=== PATIENT | male | born 1945 | race Caucasian/White ===

== ENCOUNTER 2017-11-15 14:18 | Inpatient (IN) | payer MEDICARE ==
[~2017-11-15] VITALS: Ht 175.3 cm; Wt 93.2 kg
[~2017-11-15 14:18] MED LIST: AMLO-511 PO; ATOR20TA86 PO; LORA0.5T2 PO; METHI5 PO; METO25 PO; SITA1TAB6 PO
[2017-11-15] MEDS ORDERED: FINA5TAB41 PO (14:38)
[2017-11-15] MEDS ORDERED: ESCI10TA PO (14:38)
[2017-11-15] MEDS ORDERED: LOSA25TA21 PO (14:38)
[2017-11-15] MEDS ORDERED: FURO40 PO (14:38)
[2017-11-15] MEDS ORDERED: METF500T4 PO (14:38)
[2017-11-15] MEDS ORDERED: GABA-529 PO (14:38)
[2017-11-15] MEDS ORDERED: SITA100 PO (14:38)
[2017-11-15] MEDS ORDERED: ASPI-556 PO (14:38)
[2017-11-15] MEDS ORDERED: TAMS0.4C32 PO (14:38)
[2017-11-15] MEDS ORDERED: APIX5TAB PO (14:38)
[2017-11-15 14:47] LABS: GLUCOSE,POINT OF CARE 223 MG/DL (70-110)
[2017-11-15 15:41] LABS: ANION GAP 11 mmol/L (8-16); BASOPHILS % (AUTO) 0.1 % (0.0-2.0); CALCIUM, TOTAL 9.3 mg/dL (8.8-10.5); CARBON DIOXIDE 28 mmol/L (22-29); CHLORIDE 104 mmol/L (98-107); CREATININE 0.93 mg/dL (0.60-1.30); EOSINOPHILS % (AUTO) 7.9 % (1.0-6.0); GLOMERULAR FILTR. RATE CALC > 60 mL/min (>60); GLUCOSE,RANDOM 223 mg/dL (70-110); HEMATOCRIT 33.3 % (41-53); HEMOGLOBIN 11.2 g/dL (13.5-17.5); LYMPHOCYTES # (AUTO) 2.3 K/uL (1.0-4.8); MEAN CORPUSCULAR HEMOGLOBIN 30.5 pg (26.0-34.0); MEAN CORPUSCULAR HGB CONC 33.7 G/dL (31.0-37.0); MEAN CORPUSCULAR VOLUME 91 fL (80-100); MONOCYTES # (AUTO) 0.6 K/uL (0.1-1.0); MONOCYTES % (AUTO) 6.6 % (2.0-9.0); NEUTROPHILS # (AUTO) 5.2 K/uL (1.8-7.7); NEUTROPHILS % (AUTO) 59.4 % (40.0-70.0); PLATELET COUNT (AUTO) 221 K/uL (150-450); POTASSIUM 3.4 mmol/L (3.5-5.1); RED BLOOD CELL COUNT(AUTO) 3.68 MIL/uL (4.50-5.90); RED CELL DISTRIBUTION WIDTH 16.2 % (11.5-14.5); SODIUM SERUM 143 mmol/L (136-145); UREA NITROGEN, BLOOD 21 mg/dL (7-18)
[2017-11-15 15:47] LABS: INR 1.1 (0.9-1.1); PROTHROMBIN TIME 12.1 SEC (9.4-11.6)
[2017-11-15 16:05] LABS: B-TYPE NATRIURETIC PEPTIDE 571 pg/mL (0-100)
[2017-11-15 16:06] LABS: ALANINE AMINOTRANSFERASE 25 U/L (12-78); ALBUMIN 3.5 g/dL (3.4-5.0); ALKALINE PHOSPHATASE 103 U/L (46-116); ASPARTATE AMINOTRANSFERASE 19 U/L (15-37); BILIRUBIN,TOTAL 0.5 mg/dL (0.1-1.0); CREATINE KINASE MB 1.6 ng/mL (0-5); CREATINE KINASE, TOTAL 91 U/L (39-308); TOTAL PROTEIN, SERUM 7.8 g/dL (6.4-8.2)
[2017-11-15 16:53] LABS: GLUCOSE,POINT OF CARE 208 MG/DL (70-110)
[2017-11-15 19:53] LABS: GLUCOSE,POINT OF CARE 182 MG/DL (70-110)
[2017-11-15] MEDS ORDERED: VANCOMYCIN HCL 1 GM/D5% WATER 200 ML IV ONE (22:45)
[2017-11-15 23:04] LABS: APPEARANCE,URINE CLEAR (CLEAR); BILIRUBIN,URINE NEGATIVE (NEGATIVE); GLUCOSE, URINE (UA) NEGATIVE (NEGATIVE); KETONES,URINE NEGATIVE (NEGATIVE); LEUKOCYTE ESTERASE ,URINE NEGATIVE (NEGATIVE); NITRATE,URINE NEGATIVE (NEGATIVE); OCCULT BLOOD,URINE NEGATIVE (NEGATIVE); PROTEIN,URINE TRACE (NEGATIVE)
[2017-11-15] MEDS ORDERED: 0.9% SODIUM CHLORIDE 10 ML SYRINGE IVP PRN (23:15)
[2017-11-15] MEDS ORDERED: ONDANSETRON HCL 4 MG/2 ML VIAL IVP PRN (23:15)
[2017-11-15] MEDS ORDERED: CefTRIAXone 1 GM/DEXTROSE 50 ML IV ONE (23:15)
[2017-11-15] MEDS ORDERED: ACETAMINOPHEN 325 MG TABLET PO PRN (23:15)
[2017-11-16] MEDS ORDERED: DEXTROSE 50%-WATER 25 GM/50 ML SYRINGE IVP PRN ×2 (00:15→00:30)
[2017-11-16] MEDS ORDERED: INSULIN ASPART 100 UNITS/ML SQ PRN (00:15)
[2017-11-16 00:28] VITALS: BP 128/62
[2017-11-16] MEDS ORDERED: MAGNESIUM HYDROXIDE SUSPENSION 30 ML UDCUP PO PRN (00:30)
[2017-11-16] MEDS ORDERED: MORPHINE SULFATE 2 MG/ML SYRINGE IVP PRN (00:30)
[2017-11-16] MEDS ORDERED: 0.9% SODIUM CHLORIDE 10 ML SYRINGE IVP PRN (00:30)
[2017-11-16] MEDS ORDERED: ONDANSETRON HCL 4 MG/2 ML VIAL IVP PRN (00:30)
[2017-11-16] MEDS ORDERED: ACETAMINOPHEN 325 MG TABLET PO PRN (00:30)
[2017-11-16 05:25] VITALS: BP 140/90
[2017-11-16 06:02] LABS: BASOPHILS % (AUTO) 0.3 % (0.0-2.0); EOSINOPHILS % (AUTO) 9.5 % (1.0-6.0); HEMATOCRIT 32.2 % (41-53); HEMOGLOBIN 10.9 g/dL (13.5-17.5); LYMPHOCYTES # (AUTO) 2.4 K/uL (1.0-4.8); LYMPHOCYTES % (AUTO) 31.5 % (22.0-44.0); MEAN CORPUSCULAR HEMOGLOBIN 30.9 pg (26.0-34.0); MEAN CORPUSCULAR HGB CONC 33.9 G/dL (31.0-37.0); MEAN CORPUSCULAR VOLUME 91 fL (80-100); MONOCYTES # (AUTO) 0.4 K/uL (0.1-1.0); MONOCYTES % (AUTO) 5.7 % (2.0-9.0); NEUTROPHILS # (AUTO) 4.1 K/uL (1.8-7.7); PLATELET COUNT (AUTO) 199 K/uL (150-450); RED BLOOD CELL COUNT(AUTO) 3.54 MIL/uL (4.50-5.90); RED CELL DISTRIBUTION WIDTH 16.3 % (11.5-14.5)
[2017-11-16 06:50] LABS: ANION GAP 8 mmol/L (8-16); BILIRUBIN,TOTAL 0.5 mg/dL (0.1-1.0); CHLORIDE 107 mmol/L (98-107); SODIUM SERUM 143 mmol/L (136-145)
[2017-11-16 06:54] LABS: ALANINE AMINOTRANSFERASE 25 U/L (12-78); ALBUMIN 3.4 g/dL (3.4-5.0); ALKALINE PHOSPHATASE 105 U/L (46-116); ASPARTATE AMINOTRANSFERASE 20 U/L (15-37); C-REACTIVE PROTEIN QUANT 1.36 mg/dL (0.00-0.30); CARBON DIOXIDE 28 mmol/L (22-29); CHOLESTEROL 106 mg/dL (131-200); GLOMERULAR FILTR. RATE CALC > 60 mL/min (>60); GLUCOSE,RANDOM 192 mg/dL (70-110); HDL CHOLESTEROL 35 mg/dL (40-60); LDL CHOL (CALC.) 52 mg/dL (0-130); PHOSPHORUS 3.5 mg/dL (2.5-4.9); POTASSIUM 3.2 mmol/L (3.5-5.1); TOTAL PROTEIN, SERUM 7.3 g/dL (6.4-8.2); TRIGLYCERIDES 93 mg/dL (15-150); UREA NITROGEN, BLOOD 20 mg/dL (7-18)
[2017-11-16] MEDS ORDERED: SUCCINYLCHOLINE CHLORIDE 20 MG/ML 10 ML VIAL ONE (07:12)
[2017-11-16] MEDS ORDERED: RAPID SEQUENCE KIT [RSI] 1 EACH KIT ONE (07:12)
[2017-11-16 07:32] LABS: GLUCOSE,POINT OF CARE 179 MG/DL (70-110)
[2017-11-16 07:41] LABS: HEMOGLOBIN A1C 8.7 % (4.5-6.2)
[2017-11-16] MEDS: INSULIN ASPART 100 UNITS/ML SQ PRN ×5 (07:55→22:30)
[2017-11-16] MEDS: VANCOMYCIN HCL 1.5 GM in DEXTROSE 5%-WATER 250 ML IV SCH ×2 (08:36→20:51)
[2017-11-16] MEDS ORDERED: CefTRIAXone 1 GM/DEXTROSE 50 ML IV SCH (09:00)
[2017-11-16 09:04] VITALS: BP 159/98
[2017-11-16] MEDS: FUROSEMIDE 40 MG TABLET PO SCH (09:25)
[2017-11-16] MEDS: GABAPENTIN 100 MG CAPSULE PO SCH (09:25)
[2017-11-16] MEDS: LOSARTAN POTASSIUM 25 MG TABLET PO SCH (09:25)
[2017-11-16] MEDS: TAMSULOSIN HCL 0.4 MG CAPSULE PO SCH (09:25)
[2017-11-16] MEDS: ESCITALOPRAM OXALATE 10 MG TABLET PO SCH (09:25)
[2017-11-16] MEDS: FINASTERIDE 5 MG TABLET PO SCH (09:26)
[2017-11-16] MEDS: PANTOPRAZOLE SODIUM 40 MG DR TABLET PO SCH (09:26)
[2017-11-16] MEDS: APIXABAN 5 MG TABLET PO SCH ×2 (09:26→21:17)
[2017-11-16] MEDS: METOPROLOL TARTRATE 50 MG TABLET PO SCH (09:26)
[2017-11-16] MEDS: ATORVASTATIN CALCIUM 40 MG TABLET PO SCH (09:26)
[2017-11-16 09:30] LABS: ERYTHROCYTE SEDIMENTATION RATE 22 MM/HR (0-15)
[2017-11-16] MEDS: ASPIRIN 81 MG EC TABLET PO SCH (09:31)
[2017-11-16 12:28] LABS: GLUCOSE,POINT OF CARE 248 MG/DL (70-110)
[2017-11-16 13:39] VITALS: BP 133/71
[2017-11-16 17:12] VITALS: BP 142/83
[2017-11-16 18:02] LABS: GLUCOSE,POINT OF CARE 223 MG/DL (70-110)
[2017-11-16 20:30] VITALS: BP 141/82
[2017-11-16 21:28] LABS: GLUCOSE,POINT OF CARE 178 MG/DL (70-110)
[2017-11-17] VITALS (10 sets, daily range): BP systolic 134–183; BP diastolic 80–106
[2017-11-17] MEDS: CefTRIAXone 1 GM/DEXTROSE 50 ML IV SCH ×2 (00:25→22:54)
[2017-11-17 06:06] LABS: CALCIUM, TOTAL 8.9 mg/dL (8.8-10.5); CARBON DIOXIDE 30 mmol/L (22-29); CREATININE 0.78 mg/dL (0.60-1.30); GLOMERULAR FILTR. RATE CALC > 60 mL/min (>60); GLUCOSE,RANDOM 199 mg/dL (70-110); UREA NITROGEN, BLOOD 15 mg/dL (7-18); VANCOMYCIN,RANDOM 21.9 mcg/mL (25.0-50.0)
[2017-11-17 06:25] LABS: ANION GAP 6 mmol/L (8-16); CHLORIDE 104 mmol/L (98-107); POTASSIUM 3.2 mmol/L (3.5-5.1); SODIUM SERUM 140 mmol/L (136-145)
[2017-11-17 08:17] LABS: GLUCOSE,POINT OF CARE 230 MG/DL (70-110)
[2017-11-17] MEDS: VANCOMYCIN HCL 1 GM/D5% WATER 200 ML IV SCH ×2 (08:51→16:27)
[2017-11-17] MEDS: ASPIRIN 81 MG EC TABLET PO SCH (09:00)
[2017-11-17] MEDS ORDERED: POTASSIUM CHL 10 MEQ/WATER 50 ML IV PRN (11:00)
[2017-11-17] MEDS ORDERED: MAGNESIUM SULFATE 2 GM in DEXTROSE 5%-WATER 50 ML IV PRN (11:00)
[2017-11-17] MEDS: MAGNESIUM OXIDE 400 MG TABLET PO PRN (11:27)
[2017-11-17] MEDS: POTASSIUM CHLORIDE 20 MEQ ER TABLET PO PRN (12:30)
[2017-11-17] MEDS ORDERED: REGADENOSON 0.4 MG/5 ML PF SYRINGE IVP ONE ×2 (13:50→15:43)
[2017-11-17] MEDS ORDERED: SESTAMIBI TC99M/UD ISOTOPE 1 EA INJ INJ ONE ×2 (14:00→16:15)
[2017-11-17 14:53] LABS: GLUCOSE,POINT OF CARE 198 MG/DL (70-110)
[2017-11-17] MEDS: INSULIN ASPART 100 UNITS/ML SQ PRN ×3 (15:01→21:53)
[2017-11-17] MEDS: GABAPENTIN 100 MG CAPSULE PO SCH (15:06)
[2017-11-17] MEDS: BISACODYL 10 MG RECTAL RECTAL SUPPOSITORY PR PRN (15:07)
[2017-11-17] MEDS: PANTOPRAZOLE SODIUM 40 MG DR TABLET PO SCH (15:07)
[2017-11-17] MEDS: APIXABAN 5 MG TABLET PO SCH ×2 (15:18→21:23)
[2017-11-17] MEDS: ATORVASTATIN CALCIUM 40 MG TABLET PO SCH (15:18)
[2017-11-17] MEDS: LOSARTAN POTASSIUM 25 MG TABLET PO SCH (15:18)
[2017-11-17] MEDS: FUROSEMIDE 40 MG TABLET PO SCH (15:18)
[2017-11-17] MEDS: ESCITALOPRAM OXALATE 10 MG TABLET PO SCH (15:19)
[2017-11-17] MEDS: METOPROLOL TARTRATE 50 MG TABLET PO SCH (15:19)
[2017-11-17] MEDS: TAMSULOSIN HCL 0.4 MG CAPSULE PO SCH (15:19)
[2017-11-17] MEDS: FINASTERIDE 5 MG TABLET PO SCH (15:19)
[2017-11-17] MEDS ORDERED: METO50 PO (17:43)
[2017-11-17] MEDS ORDERED: ATOR40TA28 PO (17:43)
[2017-11-17] MEDS ORDERED: PERMETHRIN 5% 60 GM CREAM TP ONE (17:45)
[2017-11-17 19:12] LABS: GLUCOSE,POINT OF CARE 226 MG/DL (70-110)
[2017-11-17] MEDS ORDERED: SODIUM CHLORIDE 0.9% 100 ML ONE (23:57)
[2017-11-18] MEDS: VANCOMYCIN HCL 1 GM/D5% WATER 200 ML IV SCH ×3 (02:54→15:47)
[2017-11-18 05:47] VITALS: BP 137/84
[2017-11-18] MEDS: INSULIN ASPART 100 UNITS/ML SQ PRN ×4 (06:02→21:01)
[2017-11-18 06:28] LABS: GLUCOSE,POINT OF CARE 217 MG/DL (70-110)
[2017-11-18 07:13] LABS: BASOPHILS % (AUTO) 0.3 % (0.0-2.0); EOSINOPHILS % (AUTO) 9.9 % (1.0-6.0); HEMATOCRIT 32.9 % (41-53); HEMOGLOBIN 11.2 g/dL (13.5-17.5); LYMPHOCYTES # (AUTO) 2.3 K/uL (1.0-4.8); LYMPHOCYTES % (AUTO) 29.1 % (22.0-44.0); MEAN CORPUSCULAR HEMOGLOBIN 30.7 pg (26.0-34.0); MEAN CORPUSCULAR VOLUME 90 fL (80-100); MONOCYTES # (AUTO) 0.5 K/uL (0.1-1.0); MONOCYTES % (AUTO) 6.9 % (2.0-9.0); NEUTROPHILS # (AUTO) 4.3 K/uL (1.8-7.7); NEUTROPHILS % (AUTO) 53.8 % (40.0-70.0); PLATELET COUNT (AUTO) 200 K/uL (150-450); RED BLOOD CELL COUNT(AUTO) 3.64 MIL/uL (4.50-5.90); RED CELL DISTRIBUTION WIDTH 16.1 % (11.5-14.5)
[2017-11-18 07:25] LABS: C-REACTIVE PROTEIN QUANT 1.33 mg/dL (0.00-0.30); CALCIUM, TOTAL 8.7 mg/dL (8.8-10.5); CARBON DIOXIDE 28 mmol/L (22-29); CREATININE 0.97 mg/dL (0.60-1.30); GLOMERULAR FILTR. RATE CALC > 60 mL/min (>60); GLUCOSE,RANDOM 279 mg/dL (70-110); UREA NITROGEN, BLOOD 12 mg/dL (7-18)
[2017-11-18 08:04] VITALS: BP 134/81
[2017-11-18] MEDS: ASPIRIN 81 MG EC TABLET PO SCH (08:24)
[2017-11-18] MEDS: TAMSULOSIN HCL 0.4 MG CAPSULE PO SCH (08:24)
[2017-11-18] MEDS: LOSARTAN POTASSIUM 25 MG TABLET PO SCH (08:24)
[2017-11-18] MEDS: FUROSEMIDE 40 MG TABLET PO SCH (08:24)
[2017-11-18] MEDS: APIXABAN 5 MG TABLET PO SCH ×2 (08:24→20:54)
[2017-11-18] MEDS: ATORVASTATIN CALCIUM 40 MG TABLET PO SCH (08:25)
[2017-11-18] MEDS: FINASTERIDE 5 MG TABLET PO SCH (08:25)
[2017-11-18] MEDS: PANTOPRAZOLE SODIUM 40 MG DR TABLET PO SCH (08:25)
[2017-11-18] MEDS: ESCITALOPRAM OXALATE 10 MG TABLET PO SCH (08:25)
[2017-11-18] MEDS: METOPROLOL TARTRATE 50 MG TABLET PO SCH (08:25)
[2017-11-18] MEDS: GABAPENTIN 100 MG CAPSULE PO SCH (08:25)
[2017-11-18 08:38] LABS: ANION GAP 8 mmol/L (8-16); CHLORIDE 105 mmol/L (98-107); POTASSIUM 3.5 mmol/L (3.5-5.1); SODIUM SERUM 141 mmol/L (136-145)
[2017-11-18 08:45] LABS: ERYTHROCYTE SEDIMENTATION RATE 35 MM/HR (0-15)
[2017-11-18 11:41] VITALS: BP 131/73
[2017-11-18 15:34] LABS: GLUCOMETER DEV NAME(LOC) 5S 1L; GLUCOSE,POINT OF CARE 257 MG/DL (70-110)
[2017-11-18 15:34] LABS: GLUCOMETER DEV NAME(LOC) 5S 1L; GLUCOSE,POINT OF CARE 285 MG/DL (70-110)
[2017-11-18 15:39] VITALS: BP 117/70
[2017-11-18 19:18] VITALS: BP 115/67
[2017-11-18] MEDS ORDERED: DiphenhydrAMINE HCL 25 MG CAPSULE PO PRN (20:45)
[2017-11-18] MEDS: CefTRIAXone 1 GM/DEXTROSE 50 ML IV SCH (23:33)
[2017-11-19] VITALS (7 sets, daily range): BP systolic 120–169; BP diastolic 78–104
[2017-11-19] MEDS ORDERED: SODIUM CHLORIDE 0.9% 250 ML IV ONE (00:09)
[2017-11-19] MEDS: VANCOMYCIN HCL 1 GM/D5% WATER 200 ML IV SCH ×4 (00:13→23:54)
[2017-11-19] MEDS: INSULIN ASPART 100 UNITS/ML SQ PRN ×4 (06:34→22:40)
[2017-11-19 07:42] LABS: ANION GAP 10 mmol/L (8-16); CALCIUM, TOTAL 8.9 mg/dL (8.8-10.5); CARBON DIOXIDE 27 mmol/L (22-29); CHLORIDE 102 mmol/L (98-107); CREATININE 0.72 mg/dL (0.60-1.30); GLOMERULAR FILTR. RATE CALC > 60 mL/min (>60); GLUCOSE,RANDOM 232 mg/dL (70-110); SODIUM SERUM 139 mmol/L (136-145); UREA NITROGEN, BLOOD 9 mg/dL (7-18)
[2017-11-19] MEDS: ESCITALOPRAM OXALATE 10 MG TABLET PO SCH (08:38)
[2017-11-19] MEDS: APIXABAN 5 MG TABLET PO SCH ×2 (08:38→22:38)
[2017-11-19] MEDS: POTASSIUM CHLORIDE 20 MEQ ER TABLET PO PRN (08:38)
[2017-11-19] MEDS: LOSARTAN POTASSIUM 25 MG TABLET PO SCH (08:38)
[2017-11-19] MEDS: ATORVASTATIN CALCIUM 40 MG TABLET PO SCH (08:38)
[2017-11-19] MEDS: PANTOPRAZOLE SODIUM 40 MG DR TABLET PO SCH (08:39)
[2017-11-19] MEDS: TAMSULOSIN HCL 0.4 MG CAPSULE PO SCH (08:39)
[2017-11-19] MEDS: GABAPENTIN 100 MG CAPSULE PO SCH (08:39)
[2017-11-19] MEDS: ASPIRIN 81 MG EC TABLET PO SCH (08:39)
[2017-11-19] MEDS: METOPROLOL TARTRATE 50 MG TABLET PO SCH (08:39)
[2017-11-19] MEDS: FINASTERIDE 5 MG TABLET PO SCH (08:39)
[2017-11-19] MEDS: FUROSEMIDE 40 MG TABLET PO SCH (08:39)
[2017-11-19] MEDS: CefTRIAXone 1 GM/DEXTROSE 50 ML IV SCH (22:48)
[2017-11-20] MEDS ORDERED: LOSARTAN POTASSIUM 50 MG TABLET PO ONE (00:15)
[2017-11-20 02:09] VITALS: BP 160/80
[2017-11-20 03:43] VITALS: BP 138/92
[2017-11-20] MEDS: INSULIN ASPART 100 UNITS/ML SQ PRN ×4 (06:14→21:48)
[2017-11-20 07:08] LABS: GLUCOMETER DEV NAME(LOC) 5S 2N; GLUCOSE,POINT OF CARE 286 MG/DL (70-110)
[2017-11-20 07:08] LABS: GLUCOMETER DEV NAME(LOC) 5S 2N; GLUCOSE,POINT OF CARE 232 MG/DL (70-110)
[2017-11-20 07:13] LABS: GLUCOMETER DEV NAME(LOC) 5S 2N; GLUCOSE,POINT OF CARE 256 MG/DL (70-110)
[2017-11-20 07:13] LABS: GLUCOMETER DEV NAME(LOC) 5S 2N; GLUCOSE,POINT OF CARE 259 MG/DL (70-110)
[2017-11-20 07:13] LABS: GLUCOMETER DEV NAME(LOC) 5S 2N; GLUCOSE,POINT OF CARE 271 MG/DL (70-110)
[2017-11-20 07:42] VITALS: BP 133/84
[2017-11-20 08:02] LABS: BASOPHILS # (AUTO) 0.02 K/uL (0.00-0.20); BASOPHILS % (AUTO) 0.3 % (0.0-2.0); EOSINOPHILS # (AUTO) 0.82 K/uL (0.00-0.70); EOSINOPHILS % (AUTO) 10.09 % (1.0-6.0); HEMATOCRIT 34.5 % (41-53); HEMOGLOBIN 11.4 g/dL (13.5-17.5); LYMPHOCYTES # (AUTO) 1.8 K/uL (1.0-4.8); LYMPHOCYTES % (AUTO) 22.4 % (22.0-44.0); MEAN CORPUSCULAR HEMOGLOBIN 30.3 pg (26.0-34.0); MEAN CORPUSCULAR VOLUME 92 fL (80-100); MONOCYTES # (AUTO) 0.6 K/uL (0.1-1.0); MONOCYTES % (AUTO) 7.5 % (2.0-9.0); NEUTROPHILS # (AUTO) 4.8 K/uL (1.8-7.7); NEUTROPHILS % (AUTO) 59.7 % (40.0-70.0); PLATELET COUNT (AUTO) 199 K/uL (150-450); RED BLOOD CELL COUNT(AUTO) 3.76 MIL/uL (4.50-5.90); RED CELL DISTRIBUTION WIDTH 16.2 % (11.5-14.5)
[2017-11-20] MEDS: LOSARTAN POTASSIUM 25 MG TABLET PO SCH (08:46)
[2017-11-20] MEDS: PANTOPRAZOLE SODIUM 40 MG DR TABLET PO SCH (08:46)
[2017-11-20] MEDS: VANCOMYCIN HCL 1 GM/D5% WATER 200 ML IV SCH (08:46)
[2017-11-20] MEDS: FUROSEMIDE 40 MG TABLET PO SCH (08:46)
[2017-11-20] MEDS: TAMSULOSIN HCL 0.4 MG CAPSULE PO SCH (08:46)
[2017-11-20] MEDS: ASPIRIN 81 MG EC TABLET PO SCH (08:47)
[2017-11-20] MEDS: ESCITALOPRAM OXALATE 10 MG TABLET PO SCH (08:47)
[2017-11-20] MEDS: GABAPENTIN 100 MG CAPSULE PO SCH (08:47)
[2017-11-20] MEDS: METOPROLOL TARTRATE 50 MG TABLET PO SCH (08:47)
[2017-11-20] MEDS: FINASTERIDE 5 MG TABLET PO SCH (08:47)
[2017-11-20] MEDS: APIXABAN 5 MG TABLET PO SCH (08:47)
[2017-11-20] MEDS: ATORVASTATIN CALCIUM 40 MG TABLET PO SCH (08:48)
[2017-11-20 09:17] LABS: ANION GAP 13 mmol/L (8-16); CALCIUM, TOTAL 8.9 mg/dL (8.8-10.5); CARBON DIOXIDE 27 mmol/L (22-29); CHLORIDE 103 mmol/L (98-107); CREATININE 0.87 mg/dL (0.60-1.30); GLOMERULAR FILTR. RATE CALC > 60 mL/min (>60); GLUCOSE,RANDOM 236 mg/dL (70-110); POTASSIUM 3.3 mmol/L (3.5-5.1); SODIUM SERUM 143 mmol/L (136-145); UREA NITROGEN, BLOOD 11 mg/dL (7-18); VANCOMYCIN,RANDOM 36.4 mcg/mL (25.0-50.0)
[2017-11-20] MEDS: POTASSIUM CHLORIDE 20 MEQ ER TABLET PO PRN (09:31)
[2017-11-20 11:44] VITALS: BP 138/75
[2017-11-20 15:48] VITALS: BP 128/73
[2017-11-20 18:14] LABS: GLUCOMETER DEV NAME(LOC) 5S 1L; GLUCOSE,POINT OF CARE 274 MG/DL (70-110)
[2017-11-20 18:14] LABS: GLUCOMETER DEV NAME(LOC) 5S 1L; GLUCOSE,POINT OF CARE 252 MG/DL (70-110)
[2017-11-20 20:09] VITALS: BP 113/69
[2017-11-21 00:08] VITALS: BP 127/84
[2017-11-21] MEDS: MAGNESIUM OXIDE 400 MG TABLET PO PRN ×2 (02:50→11:23)
[2017-11-21 05:30] VITALS: BP 127/79
[2017-11-21] MEDS: INSULIN ASPART 100 UNITS/ML SQ PRN ×4 (06:43→21:00)
[2017-11-21 07:43] VITALS: BP 137/57
[2017-11-21] MEDS ORDERED: VANCOMYCIN HCL 1.25 GM in DEXTROSE 5%-WATER 250 ML IV ONE (08:00)
[2017-11-21 08:06] LABS: ANION GAP 14 mmol/L (8-16); CALCIUM, TOTAL 9.3 mg/dL (8.8-10.5); CARBON DIOXIDE 25 mmol/L (22-29); CHLORIDE 103 mmol/L (98-107); CREATININE 0.88 mg/dL (0.60-1.30); GLOMERULAR FILTR. RATE CALC > 60 mL/min (>60); GLUCOSE,RANDOM 227 mg/dL (70-110); POTASSIUM 3.5 mmol/L (3.5-5.1); SODIUM SERUM 142 mmol/L (136-145); VANCOMYCIN,RANDOM 21.2 mcg/mL (25.0-50.0)
[2017-11-21 08:17] LABS: UREA NITROGEN, BLOOD 13 mg/dL (7-18)
[2017-11-21] MEDS ORDERED: SODIUM CHLORIDE 0.9% 250 ML IV ONE (09:08)
[2017-11-21] MEDS: GABAPENTIN 100 MG CAPSULE PO SCH (09:10)
[2017-11-21] MEDS: PANTOPRAZOLE SODIUM 40 MG DR TABLET PO SCH (09:10)
[2017-11-21] MEDS: ATORVASTATIN CALCIUM 40 MG TABLET PO SCH (09:11)
[2017-11-21] MEDS: LOSARTAN POTASSIUM 25 MG TABLET PO SCH (09:11)
[2017-11-21] MEDS: TAMSULOSIN HCL 0.4 MG CAPSULE PO SCH (09:11)
[2017-11-21] MEDS: FUROSEMIDE 40 MG TABLET PO SCH (09:11)
[2017-11-21] MEDS: FINASTERIDE 5 MG TABLET PO SCH (09:11)
[2017-11-21] MEDS: ESCITALOPRAM OXALATE 10 MG TABLET PO SCH (09:11)
[2017-11-21] MEDS ORDERED: MEDRONATE TC99M/UD<30 MCL ISOTOPE 1 EA INJ INJ ONE (10:30)
[2017-11-21] MEDS: DiphenhydrAMINE HCL 25 MG CAPSULE PO PRN ×2 (11:23→21:00)
[2017-11-21] MEDS: METOPROLOL TARTRATE 50 MG TABLET PO SCH (11:23)
[2017-11-21 11:46] VITALS: BP 135/76
[2017-11-21 15:24] VITALS: BP 109/65
[2017-11-21 19:13] LABS: GLUCOMETER DEV NAME(LOC) 5S 2N; GLUCOSE,POINT OF CARE 267 MG/DL (70-110)
[2017-11-21 19:13] LABS: GLUCOMETER DEV NAME(LOC) 5S 2N; GLUCOSE,POINT OF CARE 335 MG/DL (70-110)
[2017-11-21 19:13] LABS: GLUCOMETER DEV NAME(LOC) 5S 2N; GLUCOSE,POINT OF CARE 261 MG/DL (70-110)
[2017-11-21 19:18] LABS: GLUCOMETER DEV NAME(LOC) 5S 2N; GLUCOSE,POINT OF CARE 288 MG/DL (70-110)
[2017-11-21 19:18] LABS: GLUCOMETER DEV NAME(LOC) 5S 2N; GLUCOSE,POINT OF CARE 287 MG/DL (70-110)
[2017-11-21] MEDS ORDERED: VANCOMYCIN HCL 1.25 GM in DEXTROSE 5%-WATER 250 ML IV SCH (20:00)
[2017-11-21 20:12] VITALS: BP 120/66
[2017-11-21] MEDS: VANCOMYCIN HCL 1.25 GM in DEXTROSE 5%-WATER 250 ML IV SCH (20:28)
[2017-11-22] VITALS (17 sets, daily range): BP systolic 109–154; BP diastolic 60–95
[2017-11-22 07:07] LABS: BASOPHILS % (AUTO) 0.4 % (0.0-2.0); EOSINOPHILS % (AUTO) 9.3 % (1.0-6.0); HEMATOCRIT 35.2 % (41-53); HEMOGLOBIN 11.9 g/dL (13.5-17.5); LYMPHOCYTES # (AUTO) 1.5 K/uL (1.0-4.8); LYMPHOCYTES % (AUTO) 18.2 % (22.0-44.0); MEAN CORPUSCULAR HEMOGLOBIN 30.9 pg (26.0-34.0); MEAN CORPUSCULAR HGB CONC 33.6 G/dL (31.0-37.0); MEAN CORPUSCULAR VOLUME 92 fL (80-100); MONOCYTES # (AUTO) 0.5 K/uL (0.1-1.0); MONOCYTES % (AUTO) 6.7 % (2.0-9.0); NEUTROPHILS # (AUTO) 5.3 K/uL (1.8-7.7); NEUTROPHILS % (AUTO) 65.4 % (40.0-70.0); PLATELET COUNT (AUTO) 205 K/uL (150-450); RED BLOOD CELL COUNT(AUTO) 3.84 MIL/uL (4.50-5.90); RED CELL DISTRIBUTION WIDTH 15.5 % (11.5-14.5)
[2017-11-22 07:42] LABS: ANION GAP 10 mmol/L (8-16); CALCIUM, TOTAL 9.3 mg/dL (8.8-10.5); CARBON DIOXIDE 26 mmol/L (22-29); CHLORIDE 102 mmol/L (98-107); CREATININE 0.92 mg/dL (0.60-1.30); GLOMERULAR FILTR. RATE CALC > 60 mL/min (>60); GLUCOSE,RANDOM 244 mg/dL (70-110); POTASSIUM 3.4 mmol/L (3.5-5.1); SODIUM SERUM 138 mmol/L (136-145); UREA NITROGEN, BLOOD 17 mg/dL (7-18)
[2017-11-22] MEDS ORDERED: SODIUM CHLORIDE 0.9% 100 ML ONE (10:28)
[2017-11-22] MEDS: VANCOMYCIN HCL 1.25 GM in DEXTROSE 5%-WATER 250 ML IV SCH ×2 (10:30→20:56)
[2017-11-22] MEDS: LOSARTAN POTASSIUM 25 MG TABLET PO SCH (11:26)
[2017-11-22] MEDS: METOPROLOL TARTRATE 50 MG TABLET PO SCH (11:26)
[2017-11-22] MEDS: INSULIN ASPART 100 UNITS/ML SQ PRN ×2 (12:08→21:12)
[2017-11-22] MEDS ORDERED: LIDOCAINE HCL/PF 1% 30 ML VIAL ONE (14:24)
[2017-11-22] MEDS ORDERED: SODIUM BICARBONATE 50 MEQ/50 ML VIAL ONE (14:24)
[2017-11-22] MEDS ORDERED: IOHEXOL 300 MG/ML 50 ML VIAL ONE ×2 (15:01→16:48)
[2017-11-22] MEDS ORDERED: FentaNYL CITRATE-PF 100 MCG/2 ML VIAL ONE (15:05)
[2017-11-22] MEDS ORDERED: MIDAZOLAM HCL 2 MG/2 ML VIAL ONE (15:05)
[2017-11-22] MEDS ORDERED: SODIUM CHLORIDE 0.9% 500 ML IV ONE (15:22)
[2017-11-22] MEDS ORDERED: MIDAZOLAM HCL 2 MG/2 ML VIAL IVP ONE ×2 (15:30→16:28)
[2017-11-22] MEDS ORDERED: FentaNYL CITRATE-PF 100 MCG/2 ML VIAL IVP ONE ×2 (15:30→16:28)
[2017-11-22] MEDS ORDERED: IOHEXOL 300 MG/ML 50 ML VIAL IARTER ONE ×2 (15:30)
[2017-11-22] MEDS ORDERED: LIDOCAINE 1% 30 ML/SOD BICARB 8.4% 4 ML SQ ONE (15:30)
[2017-11-22] MEDS ORDERED: HEPARIN SODIUM,PORCINE 1,000 UNITS/ML 10 ML VIAL ONE (16:20)
[2017-11-22] MEDS ORDERED: HEPARIN SODIUM,PORCINE 5,000 UNITS/ML VIAL IVP ONE ×2 (16:30→16:33)
[2017-11-22] MEDS ORDERED: CLOPIDOGREL BISULFATE 300 MG TABLET ONE ×2 (17:57)
[2017-11-22] MEDS ORDERED: CLOPIDOGREL BISULFATE 300 MG TABLET PO ONE (18:00)
[2017-11-22] MEDS: PANTOPRAZOLE SODIUM 40 MG DR TABLET PO SCH (18:33)
[2017-11-22] MEDS: ESCITALOPRAM OXALATE 10 MG TABLET PO SCH (18:34)
[2017-11-22] MEDS: ATORVASTATIN CALCIUM 40 MG TABLET PO SCH (18:34)
[2017-11-22] MEDS: FINASTERIDE 5 MG TABLET PO SCH (18:34)
[2017-11-22] MEDS: FUROSEMIDE 40 MG TABLET PO SCH (18:34)
[2017-11-22] MEDS: GABAPENTIN 100 MG CAPSULE PO SCH (18:35)
[2017-11-22] MEDS: TAMSULOSIN HCL 0.4 MG CAPSULE PO SCH (18:35)
[2017-11-22] MEDS: MAGNESIUM OXIDE 400 MG TABLET PO PRN ×3 (18:50→23:41)
[2017-11-22] MEDS: POTASSIUM CHLORIDE 20 MEQ ER TABLET PO PRN (18:50)
[2017-11-22 21:29] LABS: GLUCOMETER DEV NAME(LOC) 5S 2N; GLUCOSE,POINT OF CARE 259 MG/DL (70-110)
[2017-11-22 21:29] LABS: GLUCOMETER DEV NAME(LOC) 5S 2N; GLUCOSE,POINT OF CARE 248 MG/DL (70-110)
[2017-11-22 21:29] LABS: GLUCOMETER DEV NAME(LOC) 5S 2N; GLUCOSE,POINT OF CARE 221 MG/DL (70-110)
[2017-11-22] MEDS: BISACODYL 10 MG RECTAL RECTAL SUPPOSITORY PR PRN (23:38)
[2017-11-22] MEDS: DiphenhydrAMINE HCL 25 MG CAPSULE PO PRN (23:38)
[2017-11-23] VITALS (9 sets, daily range): BP systolic 100–156; BP diastolic 62–85
[2017-11-23] MEDS: INSULIN ASPART 100 UNITS/ML SQ PRN ×3 (06:35→22:03)
[2017-11-23 06:58] LABS: GLUCOMETER DEV NAME(LOC) 5N 1M; GLUCOSE,POINT OF CARE 261 MG/DL (70-110)
[2017-11-23 06:58] LABS: GLUCOMETER DEV NAME(LOC) 5N 1M; GLUCOSE,POINT OF CARE 247 MG/DL (70-110)
[2017-11-23 08:00] LABS: ANION GAP 9 mmol/L (8-16); CALCIUM, TOTAL 9.1 mg/dL (8.8-10.5); CARBON DIOXIDE 27 mmol/L (22-29); CHLORIDE 101 mmol/L (98-107); CREATININE 1.01 mg/dL (0.60-1.30); GLOMERULAR FILTR. RATE CALC > 60 mL/min (>60); GLUCOSE,RANDOM 277 mg/dL (70-110); POTASSIUM 3.6 mmol/L (3.5-5.1); SODIUM SERUM 137 mmol/L (136-145); UREA NITROGEN, BLOOD 15 mg/dL (7-18)
[2017-11-23] MEDS: VANCOMYCIN HCL 1.25 GM in DEXTROSE 5%-WATER 250 ML IV SCH (09:07)
[2017-11-23] MEDS: FINASTERIDE 5 MG TABLET PO SCH (09:07)
[2017-11-23] MEDS: DiphenhydrAMINE HCL 25 MG CAPSULE PO PRN (09:07)
[2017-11-23] MEDS: GABAPENTIN 100 MG CAPSULE PO SCH (09:07)
[2017-11-23] MEDS: CLOPIDOGREL BISULFATE 75 MG TABLET PO SCH (09:07)
[2017-11-23] MEDS: FUROSEMIDE 40 MG TABLET PO SCH (09:07)
[2017-11-23] MEDS: ATORVASTATIN CALCIUM 40 MG TABLET PO SCH (09:07)
[2017-11-23] MEDS: LOSARTAN POTASSIUM 25 MG TABLET PO SCH (09:08)
[2017-11-23] MEDS: METOPROLOL TARTRATE 50 MG TABLET PO SCH (09:08)
[2017-11-23] MEDS: PANTOPRAZOLE SODIUM 40 MG DR TABLET PO SCH (09:08)
[2017-11-23] MEDS: TAMSULOSIN HCL 0.4 MG CAPSULE PO SCH (09:08)
[2017-11-23] MEDS: ESCITALOPRAM OXALATE 10 MG TABLET PO SCH (09:09)
[2017-11-23 09:43] LABS: BASOPHILS # (AUTO) 0.02 K/uL (0.00-0.20); BASOPHILS % (AUTO) 0.4 % (0.0-2.0); EOSINOPHILS # (AUTO) 0.44 K/uL (0.00-0.70); EOSINOPHILS % (AUTO) 7.11 % (1.0-6.0); HEMATOCRIT 34.7 % (41-53); HEMOGLOBIN 11.6 g/dL (13.5-17.5); LYMPHOCYTES # (AUTO) 1.3 K/uL (1.0-4.8); MEAN CORPUSCULAR HEMOGLOBIN 30.4 pg (26.0-34.0); MEAN CORPUSCULAR HGB CONC 33.3 G/dL (31.0-37.0); MEAN CORPUSCULAR VOLUME 91 fL (80-100); MONOCYTES # (AUTO) 0.6 K/uL (0.1-1.0); MONOCYTES % (AUTO) 8.8 % (2.0-9.0); NEUTROPHILS # (AUTO) 3.9 K/uL (1.8-7.7); NEUTROPHILS % (AUTO) 62.8 % (40.0-70.0); PLATELET COUNT (AUTO) 190 K/uL (150-450); RED CELL DISTRIBUTION WIDTH 15.8 % (11.5-14.5)
[2017-11-23 10:32] LABS: VANCOMYCIN,RANDOM 33.5 mcg/mL (25.0-50.0)
[2017-11-23] MEDS ORDERED: INSULIN ASPART 100 UNITS/ML SQ ONE (11:45)
[2017-11-23] MEDS: INSULIN DETEMIR 100 UNITS/ML SQ SCH ×2 (12:11→22:02)
[2017-11-23] MEDS: HEPARIN SODIUM,PORCINE 5,000 UNITS/ML VIAL SQ SCH (16:58)
[2017-11-23] MEDS: VANCOMYCIN HCL 1 GM/D5% WATER 200 ML IV SCH (20:10)
[2017-11-23 22:33] LABS: GLUCOMETER DEV NAME(LOC) 5S 1L; GLUCOSE,POINT OF CARE 215 MG/DL (70-110)
[2017-11-24] MEDS: MAGNESIUM OXIDE 400 MG TABLET PO PRN (00:09)
[2017-11-24] MEDS: HEPARIN SODIUM,PORCINE 5,000 UNITS/ML VIAL SQ SCH ×3 (00:09→18:17)
[2017-11-24 04:53] VITALS: BP 151/89
[2017-11-24] MEDS: INSULIN ASPART 100 UNITS/ML SQ PRN ×2 (06:27→15:00)
[2017-11-24 06:36] LABS: BASOPHILS % (AUTO) 0.4 % (0.0-2.0); EOSINOPHILS % (AUTO) 7.3 % (1.0-6.0); HEMATOCRIT 34.8 % (41-53); HEMOGLOBIN 12.1 g/dL (13.5-17.5); LYMPHOCYTES % (AUTO) 29.6 % (22.0-44.0); MEAN CORPUSCULAR HEMOGLOBIN 30.9 pg (26.0-34.0); MEAN CORPUSCULAR HGB CONC 34.6 G/dL (31.0-37.0); MEAN CORPUSCULAR VOLUME 89 fL (80-100); MONOCYTES # (AUTO) 0.6 K/uL (0.1-1.0); MONOCYTES % (AUTO) 8.6 % (2.0-9.0); NEUTROPHILS # (AUTO) 3.6 K/uL (1.8-7.7); NEUTROPHILS % (AUTO) 54.1 % (40.0-70.0); PLATELET COUNT (AUTO) 196 K/uL (150-450); RED CELL DISTRIBUTION WIDTH 15.6 % (11.5-14.5)
[2017-11-24 06:55] LABS: INR 1.1 (0.9-1.1)
[2017-11-24 07:05] LABS: ANION GAP 10 mmol/L (8-16); CALCIUM, TOTAL 9.3 mg/dL (8.8-10.5); CARBON DIOXIDE 26 mmol/L (22-29); CHLORIDE 101 mmol/L (98-107); CREATININE 1.04 mg/dL (0.60-1.30); GLOMERULAR FILTR. RATE CALC > 60 mL/min (>60); GLUCOSE,RANDOM 189 mg/dL (70-110); POTASSIUM 3.5 mmol/L (3.5-5.1); SODIUM SERUM 137 mmol/L (136-145); UREA NITROGEN, BLOOD 16 mg/dL (7-18)
[2017-11-24 07:31] VITALS: BP 127/63
[2017-11-24] MEDS ORDERED: LIDOCAINE HCL/PF 1% 30 ML VIAL ONE (08:41)
[2017-11-24] MEDS ORDERED: FentaNYL CITRATE-PF 100 MCG/2 ML VIAL ONE (08:41)
[2017-11-24] MEDS ORDERED: MIDAZOLAM HCL 2 MG/2 ML VIAL ONE (08:41)
[2017-11-24] MEDS: INSULIN DETEMIR 100 UNITS/ML SQ SCH (09:00)
[2017-11-24] MEDS ORDERED: GADOBUTROL 1 MMOL/ML 10 ML VIAL IVP ONE (10:28)
[2017-11-24] MEDS ORDERED: LORazepam 2 MG/ML VIAL IVP ONE (11:30)
[2017-11-24 12:39] VITALS: BP 113/73
[2017-11-24] MEDS: ESCITALOPRAM OXALATE 10 MG TABLET PO SCH (14:52)
[2017-11-24] MEDS: CLOPIDOGREL BISULFATE 75 MG TABLET PO SCH (14:52)
[2017-11-24] MEDS: GABAPENTIN 100 MG CAPSULE PO SCH (14:52)
[2017-11-24] MEDS: METOPROLOL TARTRATE 50 MG TABLET PO SCH (14:53)
[2017-11-24] MEDS: LOSARTAN POTASSIUM 25 MG TABLET PO SCH (14:53)
[2017-11-24] MEDS: PANTOPRAZOLE SODIUM 40 MG DR TABLET PO SCH (14:53)
[2017-11-24] MEDS: FUROSEMIDE 40 MG TABLET PO SCH (14:53)
[2017-11-24] MEDS: TAMSULOSIN HCL 0.4 MG CAPSULE PO SCH (14:53)
[2017-11-24] MEDS: ATORVASTATIN CALCIUM 40 MG TABLET PO SCH (14:55)
[2017-11-24] MEDS: FINASTERIDE 5 MG TABLET PO SCH (14:55)
[2017-11-24] MEDS: VANCOMYCIN HCL 1 GM/D5% WATER 200 ML IV SCH (14:58)
[2017-11-24 15:09] VITALS: BP 123/57
[2017-11-24 16:18] LABS: GLUCOMETER DEV NAME(LOC) 5N 1M; GLUCOSE,POINT OF CARE 432 MG/DL (70-110)
[2017-11-24 16:18] LABS: GLUCOMETER DEV NAME(LOC) 5S 1L; GLUCOSE,POINT OF CARE 179 MG/DL (70-110)
[2017-11-24 16:18] LABS: GLUCOMETER DEV NAME(LOC) 5N 1M; GLUCOSE,POINT OF CARE 328 MG/DL (70-110)
[2017-11-24 16:23] LABS: GLUCOMETER DEV NAME(LOC) 5N 1M; GLUCOSE,POINT OF CARE 269 MG/DL (70-110)
[2017-11-24 16:23] LABS: GLUCOMETER DEV NAME(LOC) 5N 1M; GLUCOSE,POINT OF CARE 222 MG/DL (70-110)
[2017-11-24] MEDS ORDERED: [UNRECOGNIZED DRUG - CODE] SQ (16:44)
[2017-11-24] MEDS ORDERED: INSU100V12 SQ (16:45)
[2017-11-24] MEDS ORDERED: INSNOV SQ (16:46)
[2017-11-24] MEDS ORDERED: PANT40TA25 PO (16:47)
[2017-11-24] MEDS ORDERED: ACET-2247 PO (16:49)
[2017-11-24] MEDS ORDERED: BISA10S PR (16:49)
[2017-11-24] MEDS ORDERED: DIPH25 PO (16:50)
[2017-11-24] MEDS ORDERED: VANC1IV IV (16:52)
[2017-11-24 19:51] VITALS: BP 127/69
[2017-11-25 06:57] LABS: GLUCOMETER DEV NAME(LOC) 5N 1M; GLUCOSE,POINT OF CARE 289 MG/DL (70-110)
== END 2017-11-24 20:10 | DRG 629 ==
LOC: EMS 14:19 → AHU 23:30 → EMS 11-16 00:10 → AHU 11-17 13:28 → 5S 11-17 21:35
PROVIDERS: ADMIT Internal Medicine; ATTEND Internal Medicine
PROC: 04CK3ZZ Extirpation of Matter from Right Femoral Artery, Percutaneous Approach (ICD-10-PCS; principal; 2017-11-22)
PROC: 047K3Z1 Dilation of Right Femoral Artery using Drug-Coated Balloon, Percutaneous Approach (ICD-10-PCS; 2017-11-22)
PROC: B4101ZZ Fluoroscopy of Abdominal Aorta using Low Osmolar Contrast (ICD-10-PCS; 2017-11-22)
PROC: B41F1ZZ Fluoroscopy of Right Lower Extremity Arteries using Low Osmolar Contrast (ICD-10-PCS; 2017-11-22)
PROC: B41G1ZZ Fluoroscopy of Left Lower Extremity Arteries using Low Osmolar Contrast (ICD-10-PCS; 2017-11-22)
DX: E11.621 Type 2 diabetes mellitus with foot ulcer (principal); I25.110 Atherosclerotic heart disease of native coronary artery with unstable angina pectoris; M86.9 Osteomyelitis, unspecified; E11.40 Type 2 diabetes mellitus with diabetic neuropathy, unspecified; E11.51 Type 2 diabetes mellitus with diabetic peripheral angiopathy without gangrene; L97.419 Non-pressure chronic ulcer of right heel and midfoot with unspecified severity; D63.8 Anemia in other chronic diseases classified elsewhere; E78.5 Hyperlipidemia, unspecified; E87.6 Hypokalemia; I11.0 Hypertensive heart disease with heart failure; F32.9 Major depressive disorder, single episode, unspecified; N40.0 Benign prostatic hyperplasia without lower urinary tract symptoms; Z96.659 Presence of unspecified artificial knee joint; I48.91 Unspecified atrial fibrillation; L29.9 Pruritus, unspecified; I50.9 Heart failure, unspecified; L97.519 Non-pressure chronic ulcer of other part of right foot with unspecified severity; E11.69 Type 2 diabetes mellitus with other specified complication; Z79.01 Long term (current) use of anticoagulants; Z79.02 Long term (current) use of antithrombotics/antiplatelets; Z95.1 Presence of aortocoronary bypass graft; Z88.0 Allergy status to penicillin; Z89.512 Acquired absence of left leg below knee; Z79.82 Long term (current) use of aspirin; Z79.84 Long term (current) use of oral hypoglycemic drugs
CPT/HCPCS: 36200; 37229; 73723; 75630; 75716; 75962; 78315; 78452; 82962; 83036; 83605; 83735; 84100; 84132; 84145; 85651; 86140; 87040; 93005; 93017; 93306; 93926; 97162; 99285; A9500; A9503; A9585; J0330; J0696; J1644; J1815; J2250; J2270; J2785; J3010; J3370; J3475; J3490; J7050; J7060; Q9967

== ENCOUNTER 2019-01-03 07:34 | Inpatient (IN) | payer MEDICARE ==
[~2019-01-03] VITALS: Ht 152.4 cm; Wt 82.9 kg
[~2019-01-03 07:34] MED LIST changes: +ACET-2247 PO; -AMLO-511 PO; +APIX5TAB PO; +ASPI-556 PO; -ATOR20TA86 PO; +ATOR40TA28 PO; +BISA10S PR; +DIPH25 PO; +ESCI10TA PO; +FINA5TAB41 PO; +FURO40 PO; +GABA-529 PO; +INSNOV SQ; +INSU100V12 SQ; -LORA0.5T2 PO; +LOSA25TA41 PO; +METF-960 PO; -METHI5 PO; -METO25 PO; +METO50 PO; +PANT40TA25 PO; +SITA100 PO; -SITA1TAB6 PO; +TAMS0.4C32 PO; +VANC1IV IV; +[UNRECOGNIZED DRUG - CODE] SQ
[2019-01-03 08:10] LABS: GLUCOSE,POINT OF CARE 188 MG/DL (70-110)
[2019-01-03] MEDS ORDERED: INSLAN SQ ×2 (08:17)
[2019-01-03] MEDS ORDERED: METHI5 PO (08:17)
[2019-01-03 08:28] LABS: BASOPHILS % (AUTO) 0.2 % (0.0-2.0); EOSINOPHILS % (AUTO) 1.9 % (1.0-6.0); HEMATOCRIT 28.2 % (41-53); HEMOGLOBIN 9.2 g/dL (13.5-17.5); LYMPHOCYTES # (AUTO) 1.1 K/uL (1.0-4.8); LYMPHOCYTES % (AUTO) 12.9 % (22.0-44.0); MEAN CORPUSCULAR HEMOGLOBIN 27.1 pg (26.0-34.0); MEAN CORPUSCULAR HGB CONC 32.5 G/dL (31.0-37.0); MEAN CORPUSCULAR VOLUME 83 fL (80-100); MONOCYTES # (AUTO) 0.5 K/uL (0.1-1.0); MONOCYTES % (AUTO) 6.1 % (2.0-9.0); NEUTROPHILS % (AUTO) 78.9 % (40.0-70.0); PLATELET COUNT (AUTO) 229 K/uL (150-450); RED BLOOD CELL COUNT(AUTO) 3.39 MIL/uL (4.50-5.90); RED CELL DISTRIBUTION WIDTH 24.8 % (11.5-14.5)
[2019-01-03 08:45] LABS: ALANINE AMINOTRANSFERASE 27 U/L (12-78); ALBUMIN 2.9 g/dL (3.4-5.0); ALKALINE PHOSPHATASE 150 U/L (46-116); ANION GAP 9 mmol/L (8-16); ASPARTATE AMINOTRANSFERASE 26 U/L (15-37); BILIRUBIN,TOTAL 0.4 mg/dL (0.1-1.0); CALCIUM, TOTAL 9.6 mg/dL (8.8-10.5); CARBON DIOXIDE 23 mmol/L (22-29); CHLORIDE 105 mmol/L (98-107); CREATININE 0.91 mg/dL (0.60-1.30); GLUCOSE,RANDOM 197 mg/dL (70-110); POTASSIUM 4.2 mmol/L (3.5-5.1); SODIUM SERUM 137 mmol/L (136-145); TOTAL PROTEIN, SERUM 7.6 g/dL (6.4-8.2); UREA NITROGEN, BLOOD 22 mg/dL (7-18)
[2019-01-03 08:46] LABS: GLOMERULAR FILTR. RATE CALC > 60 mL/min (>60)
[2019-01-03 09:17] LABS: GLUCOSE,POINT OF CARE 137 MG/DL (70-110)
[2019-01-03 10:13] LABS: GLUCOSE,POINT OF CARE 130 MG/DL (70-110)
[2019-01-03 11:14] LABS: GLUCOSE,POINT OF CARE 93 MG/DL (70-110)
[2019-01-03 12:04] LABS: GLUCOSE,POINT OF CARE 74 MG/DL (70-110)
[2019-01-03 13:19] LABS: GLUCOSE,POINT OF CARE 63 MG/DL (70-110)
[2019-01-03] MEDS ORDERED: DEXTROSE 50%-WATER 25 GM/50 ML SYRINGE IVP ONE ×2 (13:30→18:00)
[2019-01-03] MEDS ORDERED: ONDANSETRON HCL 4 MG/2 ML VIAL IVP PRN ×2 (13:30→22:30)
[2019-01-03] MEDS ORDERED: DEXTROSE 5%-0.45% SODIUM CHL 1,000 ML IV ONE (13:30)
[2019-01-03] MEDS ORDERED: ACETAMINOPHEN 325 MG TABLET PO PRN (13:30)
[2019-01-03] MEDS ORDERED: 0.9% SODIUM CHLORIDE 10 ML SYRINGE IVP PRN ×2 (13:30→22:30)
[2019-01-03 14:45] VITALS: BP 138/91
[2019-01-03 15:02] VITALS: BP 138/91
[2019-01-03 17:44] LABS: GLUCOMETER DEV NAME(LOC) 6N.2; GLUCOSE,POINT OF CARE 40 MG/DL (70-110)
[2019-01-03] MEDS ORDERED: DEXTROSE 50%-WATER 25 GM/50 ML SYRINGE IVP PRN ×2 (18:00→21:00)
[2019-01-03 19:03] LABS: GLUCOMETER DEV NAME(LOC) 6N.2; GLUCOSE,POINT OF CARE 149 MG/DL (70-110)
[2019-01-03 20:22] VITALS: BP 145/90
[2019-01-03 20:44] LABS: GLUCOMETER DEV NAME(LOC) 6N.1; GLUCOSE,POINT OF CARE 243 MG/DL (70-110)
[2019-01-03] MEDS: INSULIN LISPRO 100 UNITS/ML SQ PRN (21:07)
[2019-01-03] MEDS ORDERED: OxyCODONE HCL/ACETAMINOPHEN 5-325 MG TABLET PO PRN ×2 (22:30)
[2019-01-03] MEDS: DOCUSATE SODIUM 100 MG CAPSULE PO SCH (23:25)
[2019-01-03] MEDS: APIXABAN 5 MG TABLET PO SCH (23:25)
[2019-01-03 23:58] VITALS: BP 139/84
[2019-01-04] MEDS ORDERED: ACETAMINOPHEN 325 MG TABLET PO PRN
[2019-01-04 04:00] VITALS: BP 146/83
[2019-01-04 05:59] LABS: GLUCOMETER DEV NAME(LOC) 6N.2; GLUCOSE,POINT OF CARE 93 MG/DL (70-110)
[2019-01-04 06:34] LABS: BASOPHILS % (AUTO) 0.4 % (0.0-2.0); EOSINOPHILS % (AUTO) 5.4 % (1.0-6.0); HEMATOCRIT 24.7 % (41-53); HEMOGLOBIN 8.7 g/dL (13.5-17.5); LYMPHOCYTES # (AUTO) 1.6 K/uL (1.0-4.8); LYMPHOCYTES % (AUTO) 26.5 % (22.0-44.0); MEAN CORPUSCULAR HEMOGLOBIN 28.6 pg (26.0-34.0); MEAN CORPUSCULAR VOLUME 82 fL (80-100); MONOCYTES # (AUTO) 0.5 K/uL (0.1-1.0); MONOCYTES % (AUTO) 8.1 % (2.0-9.0); NEUTROPHILS # (AUTO) 3.6 K/uL (1.8-7.7); NEUTROPHILS % (AUTO) 59.6 % (40.0-70.0); PLATELET COUNT (AUTO) 207 K/uL (150-450); RED BLOOD CELL COUNT(AUTO) 3.02 MIL/uL (4.50-5.90); RED CELL DISTRIBUTION WIDTH 24.2 % (11.5-14.5)
[2019-01-04 07:09] LABS: ALANINE AMINOTRANSFERASE 28 U/L (12-78); ALBUMIN 2.6 g/dL (3.4-5.0); ALKALINE PHOSPHATASE 130 U/L (46-116); ANION GAP 9 mmol/L (8-16); ASPARTATE AMINOTRANSFERASE 23 U/L (15-37); BILIRUBIN,TOTAL 0.3 mg/dL (0.1-1.0); CALCIUM, TOTAL 8.8 mg/dL (8.8-10.5); CARBON DIOXIDE 23 mmol/L (22-29); CHLORIDE 105 mmol/L (98-107); CREATININE 0.87 mg/dL (0.60-1.30); GLUCOSE,RANDOM 94 mg/dL (70-110); POTASSIUM 4.2 mmol/L (3.5-5.1); SODIUM SERUM 137 mmol/L (136-145); TOTAL PROTEIN, SERUM 6.9 g/dL (6.4-8.2); UREA NITROGEN, BLOOD 19 mg/dL (7-18)
[2019-01-04 07:10] LABS: GLOMERULAR FILTR. RATE CALC > 60 mL/min (>60)
[2019-01-04 08:11] VITALS: BP 149/93
[2019-01-04] MEDS: ASPIRIN 81 MG EC TABLET PO SCH (09:12)
[2019-01-04] MEDS: PANTOPRAZOLE SODIUM 40 MG DR TABLET PO SCH (09:12)
[2019-01-04] MEDS: DOCUSATE SODIUM 100 MG CAPSULE PO SCH ×2 (09:12→20:54)
[2019-01-04] MEDS: APIXABAN 5 MG TABLET PO SCH ×2 (09:13→20:53)
[2019-01-04] MEDS: LOSARTAN POTASSIUM 25 MG TABLET PO SCH (09:13)
[2019-01-04] MEDS: ATORVASTATIN CALCIUM 40 MG TABLET PO SCH (09:13)
[2019-01-04] MEDS: METHIMAZOLE 5 MG TABLET PO SCH (09:14)
[2019-01-04 11:19] VITALS: BP 154/94
[2019-01-04 12:23] LABS: THYROID STIMULATING HORMONE 0.16 uIU/mL (0.36-3.74)
[2019-01-04 13:03] LABS: GLUCOMETER DEV NAME(LOC) 6N.1; GLUCOSE,POINT OF CARE 137 MG/DL (70-110)
[2019-01-04 15:57] VITALS: BP 151/96
[2019-01-04] MEDS: INSULIN LISPRO 100 UNITS/ML SQ PRN ×2 (16:44→22:05)
[2019-01-04 18:53] LABS: GLUCOMETER DEV NAME(LOC) 6N.1; GLUCOSE,POINT OF CARE 154 MG/DL (70-110)
[2019-01-04 19:55] VITALS: BP 147/88
[2019-01-05 00:15] VITALS: BP 138/85
[2019-01-05 04:15] VITALS: BP 149/85
[2019-01-05 07:51] VITALS: BP 157/98
[2019-01-05 08:13] LABS: GLUCOMETER DEV NAME(LOC) 6N.2; GLUCOSE,POINT OF CARE 108 MG/DL (70-110)
[2019-01-05 08:13] LABS: GLUCOMETER DEV NAME(LOC) 6N.2; GLUCOSE,POINT OF CARE 210 MG/DL (70-110)
[2019-01-05] MEDS ORDERED: MULTIVITAMINS, THERAPEUTIC TABLET PO SCH (09:00)
[2019-01-05] MEDS: LOSARTAN POTASSIUM 25 MG TABLET PO SCH (09:06)
[2019-01-05] MEDS: DOCUSATE SODIUM 100 MG CAPSULE PO SCH (09:06)
[2019-01-05] MEDS: METHIMAZOLE 5 MG TABLET PO SCH (09:06)
[2019-01-05] MEDS: APIXABAN 5 MG TABLET PO SCH (09:06)
[2019-01-05] MEDS: ATORVASTATIN CALCIUM 40 MG TABLET PO SCH (09:06)
[2019-01-05] MEDS: ASPIRIN 81 MG EC TABLET PO SCH (09:07)
[2019-01-05] MEDS: PANTOPRAZOLE SODIUM 40 MG DR TABLET PO SCH (09:07)
[2019-01-05] MEDS: INSULIN LISPRO 100 UNITS/ML SQ PRN (12:01)
[2019-01-05 13:04] LABS: GLUCOMETER DEV NAME(LOC) 6N.2; GLUCOSE,POINT OF CARE 216 MG/DL (70-110)
[2019-01-05 13:17] VITALS: BP 143/98
== END 2019-01-05 13:45 | DRG 637 ==
LOC: EMS 07:35 → 6N 14:01
PROVIDERS: ADMIT Internal Medicine; ATTEND Internal Medicine
DX: E11.649 Type 2 diabetes mellitus with hypoglycemia without coma (principal); G93.41 Metabolic encephalopathy; I10 Essential (primary) hypertension; E78.00 Pure hypercholesterolemia, unspecified; E11.40 Type 2 diabetes mellitus with diabetic neuropathy, unspecified; I48.0 Paroxysmal atrial fibrillation; D63.8 Anemia in other chronic diseases classified elsewhere; E05.90 Thyrotoxicosis, unspecified without thyrotoxic crisis or storm; E11.51 Type 2 diabetes mellitus with diabetic peripheral angiopathy without gangrene; I25.10 Atherosclerotic heart disease of native coronary artery without angina pectoris; Z79.4 Long term (current) use of insulin; Z89.612 Acquired absence of left leg above knee; Z95.1 Presence of aortocoronary bypass graft; Z96.659 Presence of unspecified artificial knee joint; Z79.899 Other long term (current) drug therapy
CPT/HCPCS: 82948; 84443; 87081; 96374; G0378